=== PATIENT | male | born 1990 | race Caucasian/White ===

== ENCOUNTER 2016-10-31 17:29 | Emergency (ER) | payer SELFPAY ==
[~2016-10-31] VITALS: Ht 175.3 cm; Wt 68.0 kg
[2016-10-31 17:38] VITALS: BP 126/74
--- NOTE | 2016-10-31 19:41 | NUR ---
PT TAKEN TO [facility]
--- NOTE | 2016-10-31 19:49 | NUR ---
PT RETURN FROM XRAY TO LOBBY
--- NOTE | 2016-10-31 20:34 | NUR ---
PT TAKEN TO BED 3
--- NOTE | 2016-10-31 20:42 | NUR ---
26Y/M PATIENT PRESENTS TO ED WITH C/O EPIGASTRIC PAIN X 1 DAY . PT STATES HE FELT HIS CHEST TIGHNESS WHILE DRIVING, ALSO STATES EPIGASTRIC PAIN WITH N/V/D.; SKIN IS PINK/WARM/DRY; AAOX4 WITH EVEN AND STEADY GAIT; LUNGS CLEAR BL; HR EVEN AND REGULAR; PT DENIES ANY FEVER, CP, SOB, OR COUGH AT THIS TIME; PATIENT STATES PAIN OF 5/10 AT THIS TIME; VSS; PATIENT POSITIONED FOR COMFORT; HOB ELEVATED; BEDRAILS UP X2; BED DOWN. ER MD MADE AWARE OF PT STATUS.
--- NOTE | 2016-10-31 20:59 | NUR ---
Dr. Miranda evaluating patient at bedside.
[2016-10-31] MEDS ORDERED: LORazepam 0.5 MG TAB PO ONE (21:05)
--- NOTE | 2016-10-31 21:56 | NUR ---
Patient discharged with v/s stable. Written and verbal after care instructions given and explained. Patient alert, oriented and verbalized understanding of instructions. Ambulatory with steady gait. All questions addressed prior to discharge. ID band removed. Patient advised to follow up with PMD. Rx of ATIVAN 0.5 MG given. Patient educated on indication of medication including possible reaction and side effects. Opportunity to ask questions provided and answered. FRIENDS DRIVE PATIENT HOME.
[2016-10-31 21:58] VITALS: BP 120/71
== END 2016-10-31 21:56 | disposition home or self-care (01) ==
LOC: MED 17:29
DX: F41.9 Anxiety disorder, unspecified (principal); R06.00 Dyspnea, unspecified